=== PATIENT | female | born 1950 | race Caucasian/White ===

== ENCOUNTER 2021-12-14 12:28 | Inpatient (IN) ==
--- NOTE | 2021-12-14 12:35 | Emergency Department Note ---
ED Note Addendum Note Addendum: I performed a brief screening exam and placed orders to facilitate patient care, anticipating a more comprehensive exam by another provider or me later in the patient's emergency department stay. Patient is complaining of shortness of breath. On my initial exam, she is able to speak in full sentences without any increased work of breathing.
[2021-12-14 12:56] LABS: POC Blood Urea Nitrogen 37 mg/dL (6-20); POC CO2 22 mmol/L (22-30); POC Chloride 106 mEq/L (96-108); POC Creatinine 1.3 mg/dL (0.6-1.2); POC Glucose, Random 238 mg/dL (70-105); POC Hematocrit 40 % (36-48); POC Potassium 4.2 mEql/L (3.3-5.1); POC Sodium 139 mEq/L (133-145)
--- NOTE | 2021-12-14 13:02 | Emergency Department Note ---
SOB HPI General Chief Complaint: Shortness of Breath/Dyspnea Stated Complaint: short of breath Time Seen by Provider: 12/14/21 12:34 Source: patient Mode of arrival: ambulatory Limitations: no limitations History of Present Illness HPI Narrative: Patient is a 70-year-old lady who arrives emergency department private vehicle accompanied by her complaining of shortness of breath. The patient says she has been feeling short of breath off and on for the last week. This was gradual in onset and has been progressively worsening. She notes that her shortness of breath gets worse whenever she exerts herself. Last night, she was having difficulty sleeping because she would get more short of breath whenever she would lie flat. Because of that she decided to come to the emergency department for further evaluation today. She denies any associated chest pain or fever. She has had an associated cough. She has never felt like this before. She denies any recent weight gain or peripheral edema. Related Data Home Medications Medication Instructions Recorded Confirmed insulin lispro 100 unit/mL See Rx Instructions .ROUTE .COMPLEX 08/31/19 04/06/20 subcutaneous pen (Humalog KwikPen (U-100) Insulin) potassium chloride 20 mEq 20 meq PO QDAY 08/31/19 04/06/20 tablet,extended release aspirin 81 mg tablet,delayed 81 mg PO QDAY 10/12/19 04/06/20 release (Adult Low Dose Aspirin) cholecalciferol (vitamin D3) 100 4,000 unit PO QDAY 10/12/19 04/06/20 mcg (4,000 unit) capsule multivitamin,[id number] 1 tab PO QDAY 10/12/19 04/06/20 (Complete Multivitamin) omega-3 fatty acids 1,000 mg 1,000 mg PO QDAY 10/12/19 04/06/20 capsule (Fish Oil Concentrate) zinc 50 mg tablet (Chelated Zinc) 50 mg PO QDAY 10/12/19 04/06/20 Previous Rx's Medication Instructions Recorded blood sugar diagnostic (True #200 each 10/12/19 Metrix Pro Test Strip) lancets #200 each 10/12/19 losartan 25 mg tablet 25 mg PO QDAY #90 tab 04/06/20 Allergies Allergy/AdvReac Type Severity Reaction Status Date / Time atorvastatin AdvReac Unknown cough Verified 04/06/20 08:46 Review of Systems ROS ROS Narrative: Narrative: All systems ED: reviewed and negative except as stated. Constitutional: Denies fever Gastrointestinal: Reports nausea; Denies abdominal pain, vomiting or diarrhea PFS Narrative Patient History Narrative: Narrative: Medical/Surgical/Family History All Active Problems (Updated 12/14/21 @ 14:50 by Miles Tam DO) Congestive heart failure (Acute) High cholesterol (Chronic) Heart trouble (Chronic) Type 2 diabetes mellitus (Chronic) Breast cancer (Chronic) Urinary tract infection (Acute) Allergic reaction (Acute) Urticaria (Acute) CHF (congestive heart failure) (Acute) NSTEMI (non-ST elevated myocardial infarction) (Acute) Hypoxia (Acute) Medical History (Updated 12/14/21 @ 14:50 by Miles Tam DO) Breast cancer Heart trouble High cholesterol Type 2 diabetes mellitus Urinary tract infection Surgical History History of appendectomy History of quadruple bypass (07/09/19) Family History Brother Diabetes Heart disease Mother Heart disease Social History Smoking Status: Never smoker Alcohol Intake Frequency: does not drink Substance Use: does not use Exam Narrative Narrative: I reviewed the vital signs. Gen -patient is awake and alert and in no acute distress. The patient is well groomed. HEENT -head is atraumatic. There is no conjunctival pallor or scleral icterus. Mucous membranes are moist. CV -S1-S2 regular rate and rhythm. Peripheral pulses are palpable. There is no JVD. There is minimal pitting edema bilateral lower extremities. Resp -breathing is nonlabored. Lungs are clear to auscultation bilaterally. There is no cyanosis. GI - Abdomen is soft and nontender to palpation. There is no guarding or rebound tenderness. Derm -skin is warm and dry. There is no visible rash. MSK -present extremities are atraumatic. Psych -patient has appropriate affect. The patient does not appear internally stimulated. Neuro -patient answers questions appropriately with fluent speech. Patient moves all present extremities equally. General Limitations: no limitations Course Vital Signs Vital signs: Vital Signs Temperature 97.7 F 12/14/21 12:30 Pulse Rate 89 12/14/21 12:30 Respiratory Rate 18 12/14/21 12:30 Blood Pressure 193/102 12/14/21 12:30 Pulse Oximetry (%) 98 12/14/21 12:30 Temperature 97.7 F 12/14/21 12:30 Pulse Rate 84 12/14/21 14:46 Respiratory Rate 24 H 12/14/21 14:46 Blood Pressure 151/75 12/14/21 14:46 Pulse Oximetry (%) 93 12/14/21 14:46 MDM MDM Narrative Medical decision making narrative: I personally performed interpreted limited bedside transthoracic echocardiogram. I obtained parasternal long and short axis views. There is no pericardial effusion. There is decreased left ventricular ejection fraction. There is no evidence of right ventricular strain. Patient presents with dyspnea on exertion and orthopnea. Given the lack of chest pain and the present diagnostic findings I do not think this is due to pulmonary embolus. Chest x-ray reveals pulmonary edema with bilateral effusions. BNP is elevated and troponin is normal. I discussed my clinical impression with the patient and her and she is agreeable with the plan for admission. I discussed the patient's history examination and diagnostic findings with Dr. Becerra, who agrees with the plan of care and accepts admission. Critical care time I provided 32 minutes of critical care time. This was in addition to any separately billable procedures. The patient was given IV diuretics and IV nitrates to treat her decompensated congestive heart failure and accelerated hypertension. The patient was closely monitored for response to treatment and stability of vital signs throughout their emergency department stay. Lab Data Lab results reviewed: Yes I reviewed the patient's lab results. Result diagrams: 12/14/21 12:50 Labs: Lab Results 12/14/21 12/14/21 12/14/21 Range/Units 12:49 12:49 12:50 WBC 6.8 (4.5-11.0) K/mcL RBC 4.77 (3.59-5.38) M/mcL Hgb 13.6 (11.2-15.7) g/dL Hct 38.9 (34.1-44.9) % POC Hct 40 (36-48) % MCV 81.6 (80.0-100.0) fL MCH 28.5 (26.0-34.0) pg MCHC 35.0 (31.0-36.0) g/dL RDW 13.0 (11.5-14.5) % Plt Count 153 (140-440) K/mcL MPV 10.6 H (7.4-10.4) fL Neut % (Auto) 64.5 (38.0-78.0) % Lymph % (Auto) 24.6 (15.5-49.0) % [place] % (Auto) 8.7 (1.0-12.0) % Eos % (Auto) 1.9 (0.0-7.0) % Baso % (Auto) 0.3 (0.0-2.0) % Lymph # (Auto) 1.67 (1.50-4.80) K/mcL [place] # (Auto) 0.59 (0.10-0.90) K/mcL Eos # (Auto) 0.13 (0.00-0.70) K/mcL Baso # (Auto) 0.02 (0.00-0.30) K/mcL Absolute Neutrophils 4.38 (1.80-8.00) K/mcL POC Sodium 139 (133-145) mEq/L POC Potassium 4.2 (3.3-5.1) mEql/L POC Chloride 106 (96-108) mEq/L POC Total CO2 22 (22-30) mmol/L POC BUN 37 H (6-20) mg/dL POC Creatinine 1.3 H (0.6-1.2) mg/dL POC Glucose 238 H (70-105) mg/dL POC WB Ioniz Calcium 1.30 (1.16-1.32) mmEq/L Troponin T < 0.01 (<0.03) ng/mL NT-Pro-B Natriuret Pep 10352.0 H (<125.0) pg/mL ED POC Tests ED POC Tests: DAYANARA - SARS Antigen Negative EKG Data EKG #1: EKG attestation: Yes I reviewed and interpreted this EKG. EKG results narrative: EKG performed at 12:54 PM: Sinus rhythm, rate 92. Normal P wave morphology. Left axis deviation. There is subtle ST depression in V5 and V6. T waves are inverted in V5 and V6 and otherwise flattened. Normal MN QRS and QTc duration. Compared the prior EKG from July 07, 2019, there are new T wave inversions in V5 and V6 of uncertain significance. EKG was interpreted by me. 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/PA only: No Clinical Impression: Congestive heart failure Patient Disposition: Xfer As Inpt ([facility]) Condition: Fair Follow up with: Joey Viramontes DO [Primary Care Provider] - Prescriptions: No Action omega-3 fatty acids [Fish Oil Concentrate] 1,000 mg capsule 1,000 mg PO QDAY 0RF aspirin [Adult Low Dose Aspirin] 81 mg tablet,delayed release (DR/EC) 81 mg PO QDAY 0RF cholecalciferol (vitamin D3) 4,000 unit capsule 4,000 unit PO QDAY 0RF zinc [Chelated Zinc] 50 mg tablet 50 mg PO QDAY 0RF Complete Multivitamin Tablet 1 tab PO QDAY 0RF sitagliptin [Januvia] 100 mg tablet 0RF (DME) True Metrix Pro Test Strip Strip See Rx Instructions .ROUTE .MEDSUPPLY Qty: 200 5RF Rx Instructions: Use to check blood glucose 4 times daily (DME) lancets Misc See Rx Instructions .ROUTE .MEDSUPPLY Qty: 200 3RF Rx Instructions: Use to test blood sugars 4 times daily insulin lispro [Humalog KwikPen Insulin] 100 unit/mL insulin pen See Rx Instructions .ROUTE .COMPLEX 0RF Rx Instructions: sliding scale three times daily ; potassium chloride 20 mEq tablet extended release 20 meq PO QDAY 0RF semaglutide [Ozempic] 0.25 mg or 0.5 mg(2 mg/1.5 mL) pen injector 0RF losartan 25 mg tablet 25 mg PO QDAY Qty: 90 3RF
--- NOTE | 2021-12-14 13:37 | XRay Report ---
CLINICAL INFORMATION: Dyspnea COMPARISON: 07/21/2019 TECHNIQUE: PA and Lateral views FINDINGS: The heart is mildly enlarged, but unchanged. Sternotomy changes noted. Mediastinum is normal. Pulmonary vessels are mildly distended with moderate interstitial edema throughout both lungs. Moderate left pleural effusion results in compressive atelectasis of left lower lobe and lingula. Small right pleural effusion also appreciated. IMPRESSION: Mild CHF Moderate left pleural effusion resulting in compressive atelectasis of the lingula and left lower lobe. This has worsened from previous x-ray Small right pleural effusion Interpreted and Authenticated by: Joey Tomlinson 12/14/21
[2021-12-14 13:43] LABS: Basophils # (Auto) 0.02 K/mcL (0.00-0.30); Basophils % (Auto) 0.3 % (0.0-2.0); Eosinophils # (Auto) 0.13 K/mcL (0.00-0.70); Eosinophils % (Auto) 1.9 % (0.0-7.0); Hematocrit 38.9 % (34.1-44.9); Hemoglobin 13.6 g/dL (11.2-15.7); Lymphocytes # (Auto) 1.67 K/mcL (1.50-4.80); Lymphocytes % (Auto) 24.6 % (15.5-49.0); Mean Cell Volume 81.6 fL (80.0-100.0); Mean Platelet Volume 10.6 fL (7.4-10.4); Monocytes # (Auto) 0.59 K/mcL (0.10-0.90); Monocytes % (Auto) 8.7 % (1.0-12.0); Neutrophils % (Auto) 64.5 % (38.0-78.0); Platelet Count 153 K/mcL (140-440); RBC 4.77 M/mcL (3.59-5.38); WBC 6.8 K/mcL (4.5-11.0)
[2021-12-14] MEDS ORDERED: FUROSEMIDE 40 MG/4 ML VIAL IV ONE (13:53)
[2021-12-14] MEDS ORDERED: NITROGLYCERIN/D5W 25 MG/250 ML BOTTLE IV SCH (14:00)
[2021-12-14] MEDS: 0.9 % SODIUM CHLORIDE 250 ML IV SCH (14:58)
--- NOTE | 2021-12-14 15:48 | Internal Med History&Physical ---
HPI History of Present Illness Patient information: Note initiated : 12/14/21 at 3:35 pm Service Date, if different from initiated Date: [] Patient: Megan Jain a 70 y/o F admitted on for short of breath. Chief Complaint: [shortness of breath, dyspnea on exertion] Chief complaint: shortness of breath, dyspnea on exertion History of present illness: Ms. Jain is a 70 year old F past medical history of CAD status post CABG x4, breast cancer status post right lumpectomy decades ago type 2 diabetes mellitus, presenting with 4-day history of shortness of breath and dyspnea on exertions. Patient does not have a history of congestive heart failure. Over the past 4 days, she is experiencing acute onset, gradually worsening shortness of breath with dyspnea on exertions with minimal physical activity such as walking 10 to 20 feet. In addition, she is also committing of orthopnea to the point that she have to sleep on the chair. She is experiencing unintentional weight loss, unquantifiable, due to decreased appetite. She denies any leg swellings. She is committing of productive cough with clear sputum as well as wheezing over the same period of time. She denies any chest pain or palpitations. She denies any f ever or chills. Her symptoms got particularly worse since yesterday so she decided to come to the ED for evaluation this morning. Vital signs at ED presentation significant for elevated blood pressure 196/104 as well as tachypnea with rate of breathing in the upper 20s, with rest of the vital signs within normal limits. Covid screening test negative. Labs significant for normal serum troponin less than 0.01, as well as elevated serum BNP 11,564. Serum creatinine mildly elevated to 1.3. Checks x-ray showing mild CHF with moderate left pleural effusions resulting in compressive atelectasis of the lingula and left lower lobe which has worsened from previous x-ray study. Nitroglycerin drip was started in the ED for better blood pressure control and admission request was made for management of her blood pressure as well as for CHF exacerbations. Constitutional Constitutional: Absent chills, excessive sweating, fatigue, fever(s) or weakness EENT Eyes: Absent blurry vision, change in vision, loss of vision or other visual disturbances Ears: Absent decreased hearing or tinnitus Nose, mouth and throat: Absent abnormal hearing, dry mouth, headache(s), nasal congestion or sore throat Cardiovascular Cardiovascular: Present dyspnea and orthopnea; Absent chest pain, chest pain at rest, edema, irregular heart rhythm or palpatations Respiratory Respiratory: Present cough, dyspnea on exertion, wheezing and excessive phlegm production; Absent dyspnea Gastrointestinal Gastrointestinal: Absent abdominal pain, constipation, diarrhea, nausea or vomiting Musculoskeletal Musculoskeletal: Absent back pain, deformity, limited range of motion, muscle cramps, muscle weakness or numbness Integumentary Integumentary: Absent lesions, rash or wounds Neurological Neurological: Absent focal weakness, headache(s) or numbness Psychiatric Psychiatric: Absent anxiety, depression or hallucinations PFSH PFSH All Active Problems (Updated 12/14/21 @ 15:44 by Yazan Becerra MD) CAD (coronary artery disease) (Acute) Stage 1 acute kidney injury (Acute) Hypertensive emergency (Acute) CHF exacerbation (Acute) Congestive heart failure (Acute) High cholesterol (Chronic) Heart trouble (Chronic) Type 2 diabetes mellitus (Chronic) Breast cancer (Chronic) Urinary tract infection (Acute) Allergic reaction (Acute) Urticaria (Acute) CHF (congestive heart failure) (Acute) NSTEMI (non-ST elevated myocardial infarction) (Acute) Hypoxia (Acute) Medical History (Updated 12/14/21 @ 15:44 by Yazan Becerra MD) Breast cancer Heart trouble High cholesterol Type 2 diabetes mellitus Urinary tract infection Surgical History History of appendectomy History of quadruple bypass (07/09/19) Family History Brother Diabetes Heart disease Mother Heart disease Social History (Updated 04/06/20 @ 10:38 by Joey Viramontes DO) marital status: occupational status: retired alcohol intake frequency: does not drink substance use type: does not use MEDS/ALLERGIES Home Medications and Allergies Home Medications Medication Instructions Recorded Confirmed Type insulin lispro 100 unit/mL See Rx Instructions .ROUTE .COMPLEX 08/31/19 04/06/20 History subcutaneous pen (Humalog KwikPen (U-100) Insulin) potassium chloride 20 mEq 20 meq PO QDAY 08/31/19 04/06/20 History tablet,extended release aspirin 81 mg tablet,delayed 81 mg PO QDAY 10/12/19 04/06/20 History release (Adult Low Dose Aspirin) blood sugar diagnostic (True #200 each 10/12/19 04/06/20 Rx Metrix Pro Test Strip) cholecalciferol (vitamin D3) 100 4,000 unit PO QDAY 10/12/19 04/06/20 History mcg (4,000 unit) capsule lancets #200 each 10/12/19 04/06/20 Rx multivitamin,sj-ejzm-[id number] 1 tab PO QDAY 10/12/19 04/06/20 History (Complete Multivitamin) omega-3 fatty acids 1,000 mg 1,000 mg PO QDAY 10/12/19 04/06/20 History capsule (Fish Oil Concentrate) zinc 50 mg tablet (Chelated Zinc) 50 mg PO QDAY 10/12/19 04/06/20 History losartan 25 mg tablet 25 mg PO QDAY #90 tab 04/06/20 04/06/20 Rx Allergies Allergy/AdvReac Type Severity Reaction Status Date / Time atorvastatin AdvReac Unknown cough Verified 04/06/20 08:46 EXAM Constitutional Vitals: Temp Pulse Resp BP Pulse Ox 36.5 C 81 18 139/77 94 12/14/21 12:30 12/14/21 15:11 12/14/21 15:11 12/14/21 15:11 12/14/21 15:11 General appearance: cooperative and no acute distress Head Head exam: Present atraumatic and normocephalic Eye Eye exam: Present EOMI and PERRL ENT ENT exam: Present mucous membranes moist, normal exam and normal external ear exam Neck Neck exam: Present normal inspection; Absent lymphadenopathy, tenderness or thyromegaly Respiratory Respiratory exam: Present decreased breath sounds and rhonchi; Absent accessory muscle use, respiratory distress or wheezes Cardiovascular Cardiovascular exam: Present normal rate and rhythm; Absent JVD GI/Abdominal GI/Abdominal exam: Present normal bowel sounds and soft; Absent organomegaly or tenderness Extremities Exam Extremities exam: Present full ROM, normal capillary refill and normal inspection; Absent tenderness Neurological Exam Neurological exam: Present alert, CN II-XII intact and oriented X3; Absent motor sensory deficit Psychiatric Psychiatric exam: Present normal affect and normal mood; Absent anxious or depressed Skin Skin exam: Present dry and intact DATA Data Completed and Pending Labs: Labs from last 24 hours 12/14/21 12/14/21 12/14/21 12:50 12:49 12:49 WBC 6.8 RBC 4.77 Hgb 13.6 Hct 38.9 POC Hct 40 MCV 81.6 MCH 28.5 MCHC 35.0 RDW 13.0 Plt Count 153 MPV 10.6 H Neut % (Auto) 64.5 Lymph % (Auto) 24.6 [place] % (Auto) 8.7 Eos % (Auto) 1.9 Baso % (Auto) 0.3 Lymph # (Auto) 1.67 [place] # (Auto) 0.59 Eos # (Auto) 0.13 Baso # (Auto) 0.02 Absolute Neutrophils 4.38 POC Sodium 139 POC Potassium 4.2 POC Chloride 106 POC Total CO2 22 POC BUN 37 H POC Creatinine 1.3 H POC Glucose 238 H POC WB Ioniz Calcium 1.30 Troponin T < 0.01 NT-Pro-B Natriuret Pep 66157.0 H A/P Assessment and plan (1) Type 2 diabetes mellitus: Status: Chronic Qualifiers: Diabetes mellitus jail insulin use: with 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 CHF exacerbation: Inpatient ICU telemetry Strict intake and output Daily weigh 2L/day fluid restriction Supplemental oxygen therapy as needed to keep spo2>=92% 2D echocardiogram No beta riley in acute exacerbation phase Losartan Lasix 40mg IV BID Physical therapy Occupational therapy 2. Hypertensive emergency: Inpatient ICU telemetry Nitroglycerin drip Losartan Lasix 40mg IV BID 3. h/o CAD: Aspirin [place] 3 oil 4. T2DM: HgA1c Hold oral hypoglycemics Correctional scale insulin AC HS Accu Chek AC HS Hypoglycemia protocol Diabetic diet 5. Stage 1 acute kidney injury: Avoid nephrotoxic agents Saline lock CMP in the morning to trend kidney functions GI ppx: not currently indicated DVT ppx: Heparin Code status: Full Prognosis: guarded Disposition: inpatient ICU Critical Care Time: 1hr Time Spent With Patient Time: Total time spent is greater than 50% in coordination of care (as documented) at patient's floor/unit and/or counseling patient: Total time spent with greater than 50% in coordination of care (as documented) at patient's floor/unit and/or counseling patient:: Greater than 35 minutes
[2021-12-14] MEDS ORDERED: DEXTROSE 50% 50 ML VIAL IV PRN (16:31)
[2021-12-14] MEDS ORDERED: SENNOSIDES 8.8 MG/5 ML ML PT PRN (16:31)
[2021-12-14] MEDS ORDERED: DEXTROSE 31 GM ORAL.SUSP PO PRN (16:31)
[2021-12-14] MEDS ORDERED: ONDANSETRON 4 MG/2 ML VIAL IV PRN (16:31)
[2021-12-14] MEDS ORDERED: IPRATROPIUM/ALBUTEROL 3 ML AMPUL.NEB NEB PRN (16:31)
[2021-12-14] MEDS: FUROSEMIDE 40 MG/4 ML VIAL IV SCH (17:05)
[2021-12-14] MEDS: INSULIN LISPRO 1 UNIT/0.01 ML UNIT SQ SCH ×2 (17:17→21:04)
[2021-12-14 18:06] LABS: Hemoglobin A1C 7.8 % Hgb (4.0-6.0)
[2021-12-14] MEDS: NITROGLYCERIN/D5W 25 MG/250 ML BOTTLE IV SCH (20:13)
[2021-12-14] MEDS: HEPARIN 5,000 UNIT/ML VIAL SQ SCH (20:14)
[2021-12-14] MEDS: DOCUSATE SODIUM 100 MG CAPSULE PO SCH (20:15)
[2021-12-14] MEDS: 0.9 % SODIUM CHLORIDE 10 ML SYRINGE IV SCH (20:15)
[2021-12-14] MEDS: ACETAMINOPHEN 325 MG TABLET PO PRN (20:48)
[2021-12-15] MEDS: NITROGLYCERIN/D5W 25 MG/250 ML BOTTLE IV SCH ×3 (01:16→13:45)
[2021-12-15] MEDS: 0.9 % SODIUM CHLORIDE 250 ML IV SCH (03:31)
[2021-12-15] MEDS: 0.9 % SODIUM CHLORIDE 10 ML SYRINGE IV SCH ×3 (04:39→20:28)
[2021-12-15] MEDS: ACETAMINOPHEN 325 MG TABLET PO PRN ×2 (05:25→20:27)
[2021-12-15 06:47] LABS: Basophils # (Auto) 0.03 K/mcL (0.00-0.30); Basophils % (Auto) 0.4 % (0.0-2.0); Eosinophils # (Auto) 0.11 K/mcL (0.00-0.70); Eosinophils % (Auto) 1.5 % (0.0-7.0); Hematocrit 32.2 % (34.1-44.9); Hemoglobin 11.3 g/dL (11.2-15.7); Lymphocytes # (Auto) 1.46 K/mcL (1.50-4.80); Lymphocytes % (Auto) 19.9 % (15.5-49.0); Mean Cell Volume 81.1 fL (80.0-100.0); Mean Corpuscular HGB Conc 35.1 g/dL (31.0-36.0); Mean Platelet Volume 10.8 fL (7.4-10.4); Monocytes # (Auto) 0.63 K/mcL (0.10-0.90); Monocytes % (Auto) 8.6 % (1.0-12.0); Neutrophils % (Auto) 69.6 % (38.0-78.0); Platelet Count 145 K/mcL (140-440); RBC 3.97 M/mcL (3.59-5.38); Red Cell Distribution Width 12.8 % (11.5-14.5); WBC 7.3 K/mcL (4.5-11.0)
[2021-12-15 07:14] LABS: ALT/SGPT 14 U/L (<40); AST/SGOT 17 U/L (<32); Albumin 3.5 gm/dL (3.2-5.2); Albumin/Globulin Ratio 1.5 (1.0-2.3); Alkaline Phosphatase 58 U/L (39-117); Bilirubin,Total 0.6 mg/dL (0.1-1.0); Blood Urea Nitrogen 34 mg/dL (8-23); Calcium 9.1 mg/dL (8.6-10.4); Carbon Dioxide 21 mmol/L (22-30); Chloride 101 mmol/L (96-108); Globulin 2.4 gm/dL (2.2-3.7); Glomerular Filtration Rate 42; Glucose 190 mg/dL (70-105); Phosphorous 3.3 mg/dL (2.5-4.5)
--- NOTE | 2021-12-15 07:47 | EKG ---
[facility] Test Date: 2021-12-14 Pat Name: Megan Jain Department: ED Room: Gender: Female Inventory Checker: SUJEY : 1950 Requested By: Miles Tam Order Number: [id number] Reading MD: Elvis Miner Measurements Intervals [place] Rate: 92 P: 71 MI: 125 QRS: 72 QRSD: 88 T: 156 QT: 389 QTc: 482 Interpretive Statements Sinus rhythm Probable left atrial enlargement Probable LVH with secondary repol abnrm Electronically Signed On 12-15-2021 7:47:27 PST by Elvis Miner /store/[email or web address]/[id number]
[2021-12-15] MEDS: FUROSEMIDE 40 MG/4 ML VIAL IV SCH ×2 (07:59→15:37)
[2021-12-15] MEDS: ASPIRIN 81 MG TAB.CHEW PO SCH (08:00)
[2021-12-15] MEDS: LOSARTAN 25 MG TABLET PO SCH (08:00)
[2021-12-15] MEDS: POTASSIUM CHLORIDE 20 MEQ TABLET PO SCH (08:00)
[2021-12-15] MEDS: ZINC SULFATE 50 MG CAPSULE PO SCH (08:00)
[2021-12-15] MEDS: MULTIVIT,THER IRON,CA,FA & MIN 1 TABLET PO SCH (08:00)
[2021-12-15] MEDS: HEPARIN 5,000 UNIT/ML VIAL SQ SCH ×2 (08:00→20:27)
[2021-12-15] MEDS: VITAMIN D3 25 MCG TABLET PO SCH (08:00)
[2021-12-15] MEDS: INSULIN LISPRO 1 UNIT/0.01 ML UNIT SQ SCH ×4 (08:00→20:27)
[2021-12-15] MEDS: FISH OIL 1,000 MG CAPSULE PO SCH (08:21)
[2021-12-15] MEDS: DOCUSATE SODIUM 100 MG CAPSULE PO SCH ×2 (08:21→20:28)
--- NOTE | 2021-12-15 08:46 | Internal Med Progress Note ---
SUBJECTIVE Subjective Patient information: Note initiated : 12/15/21 at 8:42 am Service Date, if different from initiated Date: [] Patient: Megan Jain a 70 y/o F admitted on 12/14/21 for short of breath. Chief Complaint: [] Interval history: Ms. Jain is a 70 year old F past medical history of CAD status post CABG x4, breast cancer status post right lumpectomy decades ago type 2 diabetes mellitus, presenting with 4-day history of shortness of breath and dyspnea on exertions. Patient does not have a history of congestive heart failure. Over the past 4 days, she is experiencing acute onset, gradually worsening shortness of breath with dyspnea on exertions with minimal physical activity such as walking 10 to 20 feet. In addition, she is also committing of orthopnea to the point that she have to sleep on the chair. She is experiencing unintentional weight loss, unquantifiable, due to decreased appetite. She denies any leg swellings. She is committing of productive cough with clear sputum as well as wheezing over the same period of time. She denies any chest pain or palpitations. She denies any fever or chills. Her symptoms got particularly worse since yesterday so she decided to come to the ED for evaluation this morning. Vital signs at ED presentation significant for elevated blood pressure 196/104 as well as tachypnea with rate of breathing in the upper 20s, with rest of the vital signs within normal limits. Covid screening test negative. Labs significant for normal serum troponin less than 0.01, as well as elevated serum BNP 11,564. Serum creatinine mildly elevated to 1.3. Checks x-ray showing mild CHF with moderate left pleural effusions resulting in compressive atelectasis of the lingula and left lower lobe which has worsened from previous x-ray study. Nitroglycerin drip was started in the ED for better blood pressure control and admission request was made for management of her blood pressure as well as for CHF exacerbations. 12/15: Currently on 1L/min oxygen. Good urine output. Still on Nitroglycerin drip. Pending 2D echocardiogram results. Improving SOB. c/o productive cough with clear sputum. c/o left lateral chest wall pain. Denies palpitation. Denies wheezing. Denies headache. Was able to sleep last night. Continue IV Lasix and Losartan. Try to wean off Nitroglycerin drip as tolerated. Constitutional Vitals: Vital Signs Temp Pulse Resp BP Pulse Ox 36.1 C 79 27 H 131/67 94 12/15/21 08:01 12/15/21 07:46 12/15/21 08:01 12/15/21 08:01 12/15/21 08:01 Period Temp Pulse Resp BP Sys/Avila Pulse Ox Last 24 Hr 36.1 C-37.2 C 73-95 13-31 117-196/56-104 90-99 Intake and Output 12/14/21 12/15/21 12/15/21 21:59 05:59 13:59 Intake Total 850 492 159 Output Total 1475 325 250 Balance -625 167 -91 Weight 67.132 kg Intake & Output: Intake & Output 12/14/21 12/15/21 12/15/21 21:59 05:59 13:59 Intake Total 850 492 159 Output Total 1475 325 250 Balance -625 167 -91 Weight 67.132 kg Intake: IV 250 492 159 NITROGLYCERIN/D5W 25 mg In 250 250 492 159 ml @ 60 MCG/MIN 36 mls/hr IV . Q6H57M [facility] Rx#:[id number] Oral 600 Output: Void Amount 1475 325 250 Other: Meal Breakfast Percent of Meal Consumed 75% Feeding Ability Independent Urine Appearance Clear Clear Cloudy Urine Color Pale Pale Bright Yellow Urine Odor Normal Normal Stool Size Small Stool Color Brown Stool Consistency Formed # Voids 1 # Bowel Movements 1 Head Head exam: Present atraumatic and normal inspection Eye Eye exam: Present normal appearance ENT ENT exam: Present mucous membranes moist, normal exam and normal external ear exam Additional comments: Nasal cannula in place Neck Neck exam: Present normal inspection Respiratory Respiratory exam: Present normal respiratory exam Cardiovascular Cardiovascular exam: Present normal rate and rhythm GI/Abdominal GI/Abdominal exam: Present normal bowel sounds Extremities Exam Extremities exam: Present pedal edema Back Exam Back exam: Present normal inspection Neurological Exam Neurological exam: Present alert and oriented X3 Skin Skin exam: Present intact and warm OBJ DATA Labs CBC & Chem 7: 12/15/21 05:23 12/15/21 05:23 Labs: Abnormal Lab Results 12/15/21 12/15/21 12/14/21 05:23 05:23 12:50 Hct 32.2 L MPV 10.8 H 10.6 H Lymph # (Auto) 1.46 L Carbon Dioxide 21 L POC BUN BUN 34 H Creatinine 1.3 H POC Creatinine Glucose 190 H POC Glucose Hemoglobin A1c NT-Pro-B Natriuret Pep 12/14/21 12/14/21 12:49 12:49 Hct MPV Lymph # (Auto) Carbon Dioxide POC BUN 37 H BUN Creatinine POC Creatinine 1.3 H Glucose POC Glucose 238 H Hemoglobin A1c 7.8 H NT-Pro-B Natriuret Pep 32900.0 H Meds: Medications Acetaminophen (Acetaminophen 325 Mg Tablet) 650 mg PO Q4-6HP PRN; Protocol PRN Reason: Per Pain Protocol/Fever > 101 Last Admin: 12/15/21 05:25 Dose: 650 mg Documented by: Albuterol/Ipratropium (Ipratropium/Albuterol 3 Ml Ampul.Neb) 3 ml NEB Q4HRT PRN PRN Reason: Wheezing Aspirin (Aspirin 81 Mg Tab.Chew) 81 mg PO DAILY [facility] Last Admin: 12/15/21 08:00 Dose: 81 mg Documented by: Dextrose (Dextrose 50% 50 Ml Vial) 0 ml IV UD PRN PRN Reason: Hypoglycemia Diagnostic Test (Pha) (Accu-Chek 1 Each Strip) 1 each FS ACHS [facility] Last Admin: 12/15/21 07:45 Dose: 1 each Documented by: Docusate Sodium (Docusate Sodium 100 Mg Capsule) 100 mg PO BID [facility] Last Admin: 12/15/21 08:21 Dose: Not Given Documented by: Fish Oil (Fish Oil 1,000 Mg Capsule) 1,000 mg PO DAILY [facility] Last Admin: 12/15/21 08:21 Dose: Not Given Documented by: Furosemide (Furosemide 40 Mg/4 Ml Vial) 40 mg IV BIDD [facility] Last Admin: 12/15/21 07:59 Dose: 40 mg Documented by: Glucose (Dextrose 31 Gm Oral.Susp) 15 gm PO PRN PRN PRN Reason: Hypoglycemia Heparin Sodium (Porcine) (Heparin 5,000 Unit/Ml Vial) 5,000 unit SQ Q12 [facility] Last Admin: 12/15/21 08:00 Dose: 5,000 unit Documented by: Sodium Chloride (Sodium Chloride 0.9%) 250 mls @ 20 mls/hr IV .[id number] [facility] Last Admin: 12/15/21 03:31 Dose: Not Given Documented by: Nitroglycerin/Dextrose (Nitroglycerin/D5w) 25 mg in 250 mls @ 36 mls/hr IV .Q6H57M [facility]; Protocol Last Titration: 12/15/21 08:37 Dose: 80 mcg/min, 48 mls/hr Documented by: Insulin Human Lispro (Insulin Lispro 1 Unit/0.01 Ml Unit) 0 unit SQ ACHS [facility]; P rotocol Last Admin: 12/15/21 08:00 Dose: 6 units Documented by: Iron Carb/Multivit/[employer]ening Plant Supervisor/Folic Acid (Multivit,Ther Iron,Ca,Fa & Min 1 Tablet) 1 tab PO DAILY [facility] Last Admin: 12/15/21 08:00 Dose: 1 tab Documented by: Losartan Potassium (Losartan 25 Mg Tablet) 25 mg PO QDAY [facility] Last Admin: 12/15/21 08:00 Dose: 25 mg Documented by: Ondansetron HCl (Ondansetron 4 Mg/2 Ml Vial) 4 mg IV Q4-6HP PRN; Protocol PRN Reason: Nausea And Vomiting Last Admin: 12/15/21 05:25 Dose: 4 mg Documented by: Potassium Chloride (Potassium Chloride 20 Meq Tablet) 20 meq PO QAC [facility] Last Admin: 12/15/21 08:00 Dose: 20 meq Documented by: Senna (Sennosides 8.8 Mg/5 Ml Ml) 8.8 mg PT DAILY PRN PRN Reason: Constipation Sodium Chloride (0.9 % Sodium Chloride 10 Ml Syringe) 10 ml IV Q8 [facility] Last Admin: 12/15/21 04:39 Dose: 10 ml Documented by: Vitamin D (Vitamin D3 25 Mcg Tablet) 100 mcg PO DAILY [facility] Last Admin: 12/15/21 08:00 Dose: 100 mcg Documented by: Zinc Sulfate (Zinc Sulfate 50 Mg Capsule) 50 mg PO DAILY [facility] Last Admin: 12/15/21 08:00 Dose: 50 mg Documented by: A/P Assessment and plan (1) Type 2 diabetes mellitus: Status: Chronic Qualifiers: 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 CHF exacerbation: Inpatient ICU telemetry Strict intake and output Daily weigh 2L/day fluid restriction Supplemental oxygen therapy as needed to keep spo2>=92%, currently on 1L/min oxygen 2D echocardiogram, results pending No beta riley in acute exacerbation phase Losartan Lasix 40mg IV BID Physical therapy Occupational therapy 2. Hypertensive emergency: Inpatient ICU telemetry Nitroglycerin drip, try to wean down/off today Losartan Lasix 40mg IV BID 3. h/o CAD: Aspirin [place] 3 oil 4. T2DM: HgA1c 7.8 Hold oral hypoglycemics Correctional scale insulin AC HS Accu Chek AC HS Hypoglycemia protocol Diabetic diet 5. Stage 1 acute kidney injury: Avoid nephrotoxic agents Saline lock CMP in the morning to trend kidney functions GI ppx: not currently indicated DVT ppx: Heparin Code status: Full Prognosis: guarded Disposition: inpatient ICU Critical Care Time: 1hr Time Spent With Patient Time: Total time spent is greater than 50% in coordination of care (as documented) at patient's floor/unit and/or counseling patient: Total time spent with greater than 50% in coordination of care (as documented) at patient's floor/unit and/or counseling patient:: Greater than 35 minutes QUALITY VTE Deep Vein Thrombosis/Pulmonary Embolism Present on Admission: No
[2021-12-15] MEDS ORDERED: IBUPROFEN 600 MG TABLET PO PRN (10:25)
[2021-12-15] MEDS ORDERED: hydrALAZINE 20 MG/ML VIAL IV PRN (21:08)
[2021-12-16] MEDS: 0.9 % SODIUM CHLORIDE 10 ML SYRINGE IV SCH ×3 (05:55→20:47)
[2021-12-16 06:56] LABS: Basophils # (Auto) 0.03 K/mcL (0.00-0.30); Basophils % (Auto) 0.5 % (0.0-2.0); Eosinophils # (Auto) 0.21 K/mcL (0.00-0.70); Eosinophils % (Auto) 3.7 % (0.0-7.0); Hemoglobin 12.2 g/dL (11.2-15.7); Lymphocytes % (Auto) 28.3 % (15.5-49.0); Mean Cell Volume 81.6 fL (80.0-100.0); Mean Corpuscular HGB Conc 34.9 g/dL (31.0-36.0); Mean Platelet Volume 11.1 fL (7.4-10.4); Monocytes # (Auto) 0.58 K/mcL (0.10-0.90); Monocytes % (Auto) 10.2 % (1.0-12.0); Neutrophils % (Auto) 57.3 % (38.0-78.0); Platelet Count 143 K/mcL (140-440); RBC 4.29 M/mcL (3.59-5.38); WBC 5.7 K/mcL (4.5-11.0)
[2021-12-16 07:17] LABS: ALT/SGPT 14 U/L (<40); AST/SGOT 15 U/L (<32); Albumin 3.8 gm/dL (3.2-5.2); Albumin/Globulin Ratio 1.4 (1.0-2.3); Alkaline Phosphatase 67 U/L (39-117); Bilirubin,Total 0.3 mg/dL (0.1-1.0); Blood Urea Nitrogen 43 mg/dL (8-23); Calcium 9.4 mg/dL (8.6-10.4); Carbon Dioxide 22 mmol/L (22-30); Chloride 101 mmol/L (96-108); Globulin 2.7 gm/dL (2.2-3.7); Glomerular Filtration Rate 25; Glucose 128 mg/dL (70-105); Phosphorous 4.9 mg/dL (2.5-4.5)
[2021-12-16] MEDS: FUROSEMIDE 40 MG TABLET PO SCH ×2 (08:42→16:39)
[2021-12-16] MEDS: POTASSIUM CHLORIDE 20 MEQ TABLET PO SCH (08:44)
[2021-12-16] MEDS: ZINC SULFATE 50 MG CAPSULE PO SCH (08:44)
[2021-12-16] MEDS: ASCORBIC ACID 500 MG TABLET PO SCH (08:44)
[2021-12-16] MEDS: DOCUSATE SODIUM 100 MG CAPSULE PO SCH ×2 (08:44→20:47)
[2021-12-16] MEDS: LOSARTAN 25 MG TABLET PO SCH (08:44)
[2021-12-16] MEDS: VITAMIN D3 25 MCG TABLET PO SCH (08:44)
[2021-12-16] MEDS: ASPIRIN 81 MG TAB.CHEW PO SCH (08:45)
--- NOTE | 2021-12-16 09:17 | Internal Med Progress Note ---
SUBJECTIVE Subjective Patient information: Note initiated : 12/16/21 at 9:15 am Service Date, if different from initiated Date: [] Patient: Megan Jain a 70 y/o F admitted on 12/14/21 for short of breath. Chief Complaint: [] Interval history: Ms. Jain is a 70 year old F past medical history of CAD status post CABG x4, breast cancer status post right lumpectomy decades ago type 2 diabetes mellitus, presenting with 4-day history of shortness of breath and dyspnea on exertions. Patient does not have a history of congestive heart failure. Over the past 4 days, she is experiencing acute onset, gradually worsening shortness of breath with dyspnea on exertions with minimal physical activity such as walking 10 to 20 feet. In addition, she is also committing of orthopnea to the point that she have to sleep on the chair. She is experiencing unintentional weight loss, unquantifiable, due to decreased appetite. She denies any leg swellings. She is committing of productive cough with clear sputum as well as wheezing over the same period of time. She denies any chest pain or palpitations. She denies any fever or chills. Her symptoms got particularly worse since yesterday so she decided to come to the ED for evaluation this morning. Vital signs at ED presentation significant for elevated blood pressure 196/104 as well as tachypnea with rate of breathing in the upper 20s, with rest of the vital signs within normal limits. Covid screening test negative. Labs significant for normal serum troponin less than 0.01, as well as elevated serum BNP 11,564. Serum creatinine mildly elevated to 1.3. Checks x-ray showing mild CHF with moderate left pleural effusions resulting in compressive atelectasis of the lingula and left lower lobe which has worsened from previous x-ray study. Nitroglycerin drip was started in the ED for better blood pressure control and admission request was made for management of her blood pressure as well as for CHF exacerbations. 12/15: Currently on 1L/min oxygen. Good urine output. Still on Nitroglycerin drip. Pending 2D echocardiogram results. Improving SOB. c/o productive cough with clear sputum. c/o left lateral chest wall pain. Denies palpitation. Denies wheezing. Denies headache. Was able to sleep last night. Continue IV Lasix and Losartan. Try to wean off Nitroglycerin drip as tolerated. 12/16: Currently on room air. Been off Nitroglycerin drip. 2D echocardiogram showing reduced left ventricular systolic function with LVEF 30-35%. Improving degree of SOB. Denies cough or sputum production or wheezing. Denies chest pain. Denies leg swelling. Denies anxiety. Continue NENA-i/ARB, Aldactone, and oral Lasix. Transfer from PCU to [facility] surg telemetry. Constitutional Vitals: Vital Signs Temp Pulse Resp BP Pulse Ox 37.0 C 72 22 137/66 99 12/16/21 08:01 12/16/21 08:01 12/16/21 08:01 12/16/21 08:01 12/16/21 08:01 Period Temp Pulse Resp BP Sys/Avila Pulse Ox Last 24 Hr 36.1 C-37.1 C 66-165 - 116-165/57-117 90-100 Intake and Output 12/15/21 12/16/21 12/16/21 21:59 05:59 13:59 Intake Total 955 0 240 Output Total 600 400 175 Balance 355 -400 65 Weight 66.82 kg Intake & Output: Intake & Output 12/15/21 12/16/21 12/16/21 21:59 05:59 13:59 Intake Total 955 0 240 Output Total 600 400 175 Balance 355 -400 65 Weight 66.82 kg Intake: Nourishment/Supplement quantity 240 (ml) Oral 715 0 240 Output: Void Amount 600 400 175 Other: Meal Dinner Breakfast Percent of Meal Consumed 100% 50% Feeding Ability Independent Independent Nourishment/Supplement name ensure Urine Appearance Clear Clear Clear Urine Color Bright Yellow Pale Bright Yellow Urine Odor Normal Normal General appearance: average body habitus, cooperative and no acute distress Head Head exam: Present atraumatic and normal inspection Eye Eye exam: Present normal appearance ENT ENT exam: Present mucous membranes moist, normal exam and normal external ear exam Neck Neck exam: Present normal inspection Respiratory Respiratory exam: Present normal respiratory exam and rhonchi Cardiovascular Cardiovascular exam: Present normal rate and rhythm GI/Abdominal GI/Abdominal exam: Present normal bowel sounds Extremities Exam Extremities exam: Present pedal edema Back Exam Back exam: Present normal inspection Neurological Exam Neurological exam: Present alert and oriented X3 Skin Skin exam: Present intact and warm OBJ DATA Labs CBC & Chem 7: 12/16/21 05:20 12/16/21 05:20 Labs: Abnormal Lab Results 12/16/21 12/16/21 12/15/21 05:20 05:20 05:23 Hct MPV 11.1 H Lymph # (Auto) Carbon Dioxide 21 L POC BUN BUN 43 H 34 H Creatinine 2.0 H 1.3 H POC Creatinine Glucose 128 H 190 H POC Glucose Hemoglobin A1c Phosphorus 4.9 H NT-Pro-B Natriuret Pep 12/15/21 12/14/21 12/14/21 05:23 12:50 12:49 Hct 32.2 L MPV 10.8 H 10.6 H Lymph # (Auto) 1.46 L Carbon Dioxide POC BUN BUN Creatinine POC Creatinine Glucose POC Glucose Hemoglobin A1c 7.8 H Phosphorus NT-Pro-B Natriuret Pep 12/14/21 12:49 Hct MPV Lymph # (Auto) Carbon Dioxide POC BUN 37 H BUN Creatinine POC Creatinine 1.3 H Glucose POC Glucose 238 H Hemoglobin A1c Phosphorus NT-Pro-B Natriuret Pep 52819.0 H Meds: Medications Acetaminophen (Acetaminophen 325 Mg Tablet) 650 mg PO Q4-6HP PRN; Protocol PRN Reason: Per Pain Protocol/Fever > 101 Last Admin: 12/15/21 20:27 Dose: 650 mg Documented by: Albuterol/Ipratropium (Ipratropium/Albuterol 3 Ml Ampul.Neb) 3 ml NEB Q4HRT PRN PRN Reason: Wheezing Ascorbic Acid (Ascorbic Acid 500 Mg Tablet) 250 mg PO DAILY [facility] Last Admin: 12/16/21 08:44 Dose: 250 mg Documented by: Aspirin (Aspirin 81 Mg Tab.Chew) 81 mg PO DAILY [facility] Last Admin: 12/15/21 08:00 Dose: 81 mg Documented by: Dextrose (Dextrose 50% 50 Ml Vial) 0 ml IV UD PRN PRN Reason: Hypoglycemia Diagnostic Test (Pha) (Accu-Chek 1 Each Strip) 1 each FS ACHS [facility] Last Admin: 12/16/21 07:29 Dose: 1 each Documented by: Docusate Sodium (Docusate Sodium 100 Mg Capsule) 100 mg PO BID [facility] Last Admin: 12/16/21 08:44 Dose: 100 mg Documented by: Fish Oil (Fish Oil 1,000 Mg Capsule) 1,000 mg PO DAILY [facility] Last Admin: 12/15/21 08:21 Dose: Not Given Documented by: Furosemide (Furosemide 40 Mg Tablet) 40 mg PO BIDD [facility] Last Admin: 12/16/21 08:42 Dose: 40 mg Documented by: Glucose (Dextrose 31 Gm Oral.Susp) 15 gm PO PRN PRN PRN Reason: Hypoglycemia Heparin Sodium (Porcine) (Heparin 5,000 Unit/Ml Vial) 5,000 unit SQ Q12 [facility] Last Admin: 12/15/21 20:27 Dose: 5,000 unit Documented by: Hydralazine HCl (Hydralazine 20 Mg/Ml Vial) 10 mg IV Q4-6HP PRN PRN Reason: Hypertension Ibuprofen (Ibuprofen 600 Mg Tablet) 600 mg PO QIDP PRN; Protocol PRN Reason: PAIN/FEVER > 101 Last Admin: 12/15/21 10:47 Dose: 600 mg Documented by: Insulin Human Lispro (Insulin Lispro 1 Unit/0.01 Ml Unit) 0 unit SQ ACHS [facility]; Protocol Last Admin: 12/15/21 20:27 Dose: 4 units Documented by: Iron Carb/Multivit/Lokie Driver/Folic Acid (Multivit,Ther Iron,Ca,Fa & Min 1 Tablet) 1 tab PO DAILY [facility] Last Admin: 12/15/21 08:00 Dose: 1 tab Documented by: Losartan Potassium (Losartan 25 Mg Tablet) 25 mg PO QDAY [facility] Last Admin: 12/16/21 08:44 Dose: 25 mg Documented by: Ondansetron HCl (Ondansetron 4 Mg/2 Ml Vial) 4 mg IV Q4-6HP PRN; Protocol PRN Reason: Nausea And Vomiting Last Admin: 12/15/21 05:25 Dose: 4 mg Documented by: Calcium-Magnesium- Zinc 333-133-5 Mg Tablet 1 dose PO DAILY [facility] Potassium Chloride (Potassium Chloride 20 Meq Tablet) 20 meq PO [facility] Last Admin: 12/16/21 08:44 Dose: 20 meq Documented by: Senna (Sennosides 8.8 Mg/5 Ml Ml) 8.8 mg PT DAILY PRN PRN Reason: Constipation Sodium Chloride (0.9 % Sodium Chloride 10 Ml Syringe) 10 ml IV Q8 [facility] Last Admin: 12/16/21 05:55 Dose: 10 ml Documented by: Vitamin D (Vitamin D3 25 Mcg Tablet) 100 mcg PO DAILY [facility] Last Admin: 12/16/21 08:44 Dose: 100 mcg Documented by: Zinc Sulfate (Zinc Sulfate 50 Mg Capsule) 50 mg PO DAILY [facility] Last Admin: 12/16/21 08:44 Dose: 50 mg Documented by: A/P Assessment and plan (1) Type 2 diabetes mellitus: Status: Chronic Qualifiers: Diabetes mellitus prison insulin use: with prison use Diabetes mellitus complication status: with hypoglycemia Diabetes mellitus complication detail: without coma Qualified Code(s): E11.649 - Type 2 diabetes mellitus with hypoglycemia without coma; Z79.4 - correction (current) use of insulin (2) CHF exacerbation: Status: Acute (3) Hypertensive emergency: Status: Acute (4) Stage 1 acute kidney injury: Status: Acute (5) CAD (coronary artery disease): Status: Acute Narrative A/P Narrative: Assessment and Plans: 1. CHF exacerbation: Inpatient med surg telemetry Strict intake and output Daily weigh 2L/day fluid restriction Supplemental oxygen therapy as needed to keep spo2>=92%, currently on room air 2D echocardiogram showing reduced left ventricular systolic function with LVEF 30-35% No beta riley in acute exacerbation phase Losartan Lasix 40mg PO BID Aldactone Physical therapy Occupational therapy 2. Hypertensive emergency: Nitroglycerin drip has been off Losartan Lasix 40mg PO BID 3. h/o CAD: Aspirin [place] 3 oil 4. T2DM: HgA1c 7.8 Hold oral hypoglycemics Correctional scale insulin AC HS Accu Chek AC HS Hypoglycemia protocol Diabetic diet 5. Stage 1 acute kidney injury: Avoid nephrotoxic agents Saline lock CMP in the morning to trend kidney functions GI ppx: not currently indicated DVT ppx: Heparin Code status: Full Prognosis: stable Disposition: inpatient med surg telemetry Time Spent With Patient Time: Total time spent is greater than 50% in coordination of care (as documented) at patient's floor/unit and/or counseling patient: Total time spent with greater than 50% in coordination of care (as documented) at patient's floor/unit and/or counseling patient:: Greater than 35 minutes QUALITY VTE Deep Vein Thrombosis/Pulmonary Embolism Present on Admission: No
[2021-12-16] MEDS: HEPARIN 5,000 UNIT/ML VIAL SQ SCH ×2 (10:37→20:47)
[2021-12-16] MEDS: INSULIN LISPRO 1 UNIT/0.01 ML UNIT SQ SCH ×4 (11:13→20:56)
[2021-12-16] MEDS: FISH OIL 1,000 MG CAPSULE PO SCH (11:14)
[2021-12-16] MEDS: CALCIUM MAGNESIUM ZINC PO SCH (11:14)
[2021-12-16] MEDS: MULTIVIT,THER IRON,CA,FA & MIN 1 TABLET PO SCH (11:16)
[2021-12-16] MEDS: FUROSEMIDE 40 MG/4 ML VIAL IV SCH (11:21)
--- NOTE | 2021-12-16 13:53 | Internal Med Progress Note ---
SUBJECTIVE Subjective Patient information: Note initiated : 12/16/21 at 1:49 pm Service Date, if different from initiated Date: [] Patient: Megan aJin a 70 y/o F admitted on 12/14/21 for short of breath. Chief Complaint: [] Interval history: Ms. Jain is a 70 year old F past medical history of CAD status post CABG x4, breast cancer status post right lumpectomy decades ago type 2 diabetes mellitus, presenting with 4-day history of shortness of breath and dyspnea on exertions. Patient does not have a history of congestive heart failure. Over the past 4 days, she is experiencing acute onset, gradually worsening shortness of breath with dyspnea on exertions with minimal physical activity such as walking 10 to 20 feet. In addition, she is also committing of orthopnea to the point that she have to sleep on the chair. She is experiencing unintentional weight loss, unquantifiable, due to decreased appetite. She denies any leg swellings. She is committing of productive cough with clear sputum as well as wheezing over the same period of time. She denies any chest pain or palpitations. She denies any fever or chills. Her symptoms got particularly worse since yesterday so she decided to come to the ED for evaluation this morning. Vital signs at ED presentation significant for elevated blood pressure 196/104 as well as tachypnea with rate of breathing in the upper 20s, with rest of the vital signs within normal limits. Covid screening test negative. Labs significant for normal serum troponin less than 0.01, as well as elevated serum BNP 11,564. Serum creatinine mildly elevated to 1.3. Checks x-ray showing mild CHF with moderate left pleural effusions resulting in compressive atelectasis of the lingula and left lower lobe which has worsened from previous x-ray study. Nitroglycerin drip was started in the ED for better blood pressure control and admission request was made for management of her blood pressure as well as for CHF exacerbations. 12/15: Currently on 1L/min oxygen. Good urine output. Still on Nitroglycerin drip. Pending 2D echocardiogram results. Improving SOB. c/o productive cough with clear sputum. c/o left lateral chest wall pain. Denies palpitation. Denies wheezing. Denies headache. Was able to sleep last night. Continue IV Lasix and Losartan. Try to wean off Nitroglycerin drip as tolerated. 12/16: Currently on room air. Been off Nitroglycerin drip. 2D echocardiogram showing reduced left ventricular systolic function with LVEF 30-35%. Improving degree of SOB. Denies cough or sputum production or wheezing. Denies chest pain. Denies leg swelling. Denies anxiety. Continue NENA-i/ARB, Aldactone, and oral Lasix. Transfer from PCU to [facility] telemetry. 12/17 On room air, not short of breath at rest but feels short of breath with exertion. Renal function improving. Started Coreg 3.125 mg BID. Physical exam Head: Atraumatic, normal inspection. Eyes: normal appearance, no scleral icterus. Neck: full ROM Respiratory: fine bibasilar crackles, no respiratory distress. Cardiovascular: normal rate and rhythm, S1, S2. GI/Abdominal: soft, nontender, no guarding. Extremities: full range of motion, nontender. Neurological: CN II-XII intact, intact motor, intact sensation. Psychiatric: normal mood. Skin: warm, normal color Constitutional Vitals: Vital Signs Temp Pulse Resp BP Pulse Ox 98.7 F 89 22 169/79 99 12/16/21 12:02 12/16/21 13:01 12/16/21 08:01 12/16/21 13:01 12/16/21 13:01 Period Temp Pulse Resp BP Sys/Avila Pulse Ox Last 24 Hr 97.0 F-98.8 F 66-91 09-11 116-171/57-95 90-100 Intake and Output 12/15/21 12/16/21 12/16/21 21:59 05:59 13:59 Intake Total 955 0 720 Output Total 600 400 670 Balance 355 -400 50 Weight 66.82 kg Intake & Output: Intake & Output 12/15/21 12/16/21 12/16/21 21:59 05:59 13:59 Intake Total 955 0 720 Output Total 600 400 670 Balance 355 -400 50 Weight 66.82 kg Intake: Nourishment/Supplement quantity 240 (ml) Oral 715 0 720 Output: Void Amount 600 400 670 Other: Meal Dinner Lunch Percent of Meal Consumed 100% 100% Feeding Ability Independent Independent Nourishment/Supplement name ensure Urine Appearance Clear Clear Clear Urine Color Bright Yellow Pale Bright Yellow Urine Odor Normal Normal OBJ DATA Labs CBC & Chem 7: 12/17/21 06:11 12/17/21 06:11 Labs: Abnormal Lab Results 12/16/21 12/16/21 12/15/21 05:20 05:20 05:23 Hct MPV 11.1 H Lymph # (Auto) Carbon Dioxide 21 L POC BUN BUN 43 H 34 H Creatinine 2.0 H 1.3 H POC Creatinine Glucose 128 H 190 H POC Glucose Hemoglobin A1c Phosphorus 4.9 H NT-Pro-B Natriuret Pep 12/15/21 12/14/21 12/14/21 05:23 12:50 12:49 Hct 32.2 L MPV 10.8 H 10.6 H Lymph # (Auto) 1.46 L Carbon Dioxide POC BUN BUN Creatinine POC Creatinine Glucose POC Glucose Hemoglobin A1c 7.8 H Phosphorus NT-Pro-B Natriuret Pep 12/14/21 12:49 Hct MPV Lymph # (Auto) Carbon Dioxide POC BUN 37 H BUN Creatinine POC Creatinine 1.3 H Glucose POC Glucose 238 H Hemoglobin A1c Phosphorus NT-Pro-B Natriuret Pep 16511.0 H Meds: Medications Acetaminophen (Acetaminophen 325 Mg Tablet) 650 mg PO Q4-6HP PRN; Protocol PRN Reason: Per Pain Protocol/Fever > 101 Last Admin: 12/15/21 20:27 Dose: 650 mg Documented by: Albuterol/Ipratropium (Ipratropium/Albuterol 3 Ml Ampul.Neb) 3 ml NEB Q4HRT PRN PRN Reason: Wheezing Ascorbic Acid (Ascorbic Acid 500 Mg Tablet) 250 mg PO DAILY [facility] Last Admin: 12/16/21 08:44 Dose: 250 mg Documented by: Aspirin (Aspirin 81 Mg Tab.Chew) 81 mg PO DAILY [facility] Last Admin: 12/16/21 08:45 Dose: 81 mg Documented by: Dextrose (Dextrose 50% 50 Ml Vial) 0 ml IV UD PRN PRN Reason: Hypoglycemia Diagnostic Test (Pha) (Accu-Chek 1 Each Strip) 1 each FS ACHS [facility] Last Admin: 12/16/21 11:38 Dose: 1 each Documented by: Docusate Sodium (Docusate Sodium 100 Mg Capsule) 100 mg PO BID [facility] Last Admin: 12/16/21 08:44 Dose: 100 mg Documented by: Fish Oil (Fish Oil 1,000 Mg Capsule) 1,000 mg PO DAILY [facility] Last Admin: 12/16/21 11:14 Dose: Not Given Documented by: Furosemide (Furosemide 40 Mg Tablet) 40 mg PO BIDD [facility] Last Admin: 12/16/21 08:42 Dose: 40 mg Documented by: Glucose (Dextrose 31 Gm Oral.Susp) 15 gm PO PRN PRN PRN Reason: Hypoglycemia Heparin Sodium (Porcine) (Heparin 5,000 Unit/Ml Vial) 5,000 unit SQ Q12 [facility] Last Admin: 12/16/21 10:37 Dose: 5,000 unit Documented by: Hydralazine HCl (Hydralazine 20 Mg/Ml Vial) 10 mg IV Q4-6HP PRN PRN Reason: Hypertension Ibuprofen (Ibuprofen 600 Mg Tablet) 600 mg PO QIDP PRN; Protocol PRN Reason: PAIN/FEVER > 101 Last Admin: 12/15/21 10:47 Dose: 600 mg Documented by: Insulin Human Lispro (Insulin Lispro 1 Unit/0.01 Ml Unit) 0 unit SQ ACHS [facility]; Protocol Last Admin: 12/16/21 11:52 Dose: 2 units Documented by: Iron Carb/Multivit/[place]/Folic Acid (Multivit,Ther Iron,Ca,Fa & Min 1 Tablet) 1 tab PO DAILY [facility] Last Admin: 12/16/21 11:16 Dose: 1 tab Documented by: Losartan Potassium (Losartan 25 Mg Tablet) 25 mg PO QDAY [facility] Last Admin: 12/16/21 08:44 Dose: 25 mg Documented by: Ondansetron HCl (Ondansetron 4 Mg/2 Ml Vial) 4 mg IV Q4-6HP PRN; Protocol PRN Reason: Nausea And Vomiting Last Admin: 12/15/21 05:25 Dose: 4 mg Documented by: Calcium-Magnesium- Zinc 333-133-5 Mg Tablet 1 dose PO DAILY [facility] Last Admin: 12/16/21 11:14 Dose: Not Given Documented by: Potassium Chloride (Potassium Chloride 20 Meq Tablet) [facility] Last Admin: 12/16/21 08:44 Dose: 20 meq Documented by: Senna (Sennosides 8.8 Mg/5 Ml Ml) 8.8 mg PT DAILY PRN PRN Reason: Constipation Sodium Chloride (0.9 % Sodium Chloride 10 Ml Syringe) 10 ml IV Q8 [facility] Last Admin: 12/16/21 05:55 Dose: 10 ml Documented by: Spironolactone (Spironolactone 25 Mg Tablet) 25 mg PO DAILY [facility] Vitamin D (Vitamin D3 25 Mcg Tablet) 100 mcg PO DAILY [facility] Last Admin: 12/16/21 08:44 Dose: 100 mcg Documented by: Zinc Sulfate (Zinc Sulfate 50 Mg Capsule) 50 mg PO DAILY [facility] Last Admin: 12/16/21 08:44 Dose: 50 mg Documented by: A/P Narrative A/P Narrative: Assessment: 70 year old female with a medical history of CAD status post CABG x4, breast cancer status post right lumpectomy decades ago type 2 diabetes mellitus, presenting with 4-day history of shortness of breath and dyspnea on exertions. The patient was found to have acute heart failure with reduced left ventricular ejection fraction of 30 to 35%, mildly reduced right ventricular systolic function. #Acute systolic heart failure -No evidence of acute KS on admission. -History of CAD status post CABG. #Acute kidney injury versus acute on chronic kidney injury #Hypertension #Coronary disease status post CABG #Type 2 diabetes mellitus #Breast cancer status post lumpectomy Plan -Lasix 40 mg twice daily, follow volume status. -Monitor renal function, electrolytes, urine output. -Start Coreg 3.125 mg BID, increase dose at tolerated. -Losartan and spironolactonenew medications for HFrEF. -Consider adding beta-riley prior to discharge for HFrEF. -Continue home aspirin, unclear why the patient was not taking a statin prior to admission. -Correctional insulin SSI-medium. -Consider adding SGLT2 inhibitor for diagnosis of HFrEF and DM. -Diabetic diet. -PT following. -DVT PPx: Heparin SQ -CODE STATUS: Full -Disposition: Home when stable, outpatient cardiac stress test and cardiology referral for new diagnosis of HFrEF. Time Spent With Patient Time: Total time spent is greater than 50% in coordination of care (as documented) at patient's floor/unit and/or counseling patient: QUALITY VTE Deep Vein Thrombosis/Pulmonary Embolism Present on Admission: No
[2021-12-17] MEDS: 0.9 % SODIUM CHLORIDE 10 ML SYRINGE IV SCH ×3 (05:23→20:38)
[2021-12-17 07:01] LABS: Basophils # (Auto) 0.03 K/mcL (0.00-0.30); Basophils % (Auto) 0.5 % (0.0-2.0); Eosinophils # (Auto) 0.17 K/mcL (0.00-0.70); Hematocrit 35.4 % (34.1-44.9); Hemoglobin 11.8 g/dL (11.2-15.7); Lymphocytes # (Auto) 1.36 K/mcL (1.50-4.80); Lymphocytes % (Auto) 24.2 % (15.5-49.0); Mean Cell Volume 83.9 fL (80.0-100.0); Mean Corpuscular HGB Conc 33.3 g/dL (31.0-36.0); Mean Platelet Volume 10.8 fL (7.4-10.4); Monocytes # (Auto) 0.55 K/mcL (0.10-0.90); Monocytes % (Auto) 9.8 % (1.0-12.0); Neutrophils % (Auto) 62.5 % (38.0-78.0); Platelet Count 145 K/mcL (140-440); RBC 4.22 M/mcL (3.59-5.38); Red Cell Distribution Width 13.1 % (11.5-14.5); WBC 5.6 K/mcL (4.5-11.0)
[2021-12-17] MEDS: INSULIN LISPRO 1 UNIT/0.01 ML UNIT SQ SCH ×4 (07:25→20:37)
[2021-12-17 07:37] LABS: ALT/SGPT 15 U/L (<40); AST/SGOT 18 U/L (<32); Albumin 3.6 gm/dL (3.2-5.2); Albumin/Globulin Ratio 1.4 (1.0-2.3); Alkaline Phosphatase 62 U/L (39-117); Bilirubin,Total 0.3 mg/dL (0.1-1.0); Blood Urea Nitrogen 49 mg/dL (8-23); Calcium 9.7 mg/dL (8.6-10.4); Carbon Dioxide 20 mmol/L (22-30); Chloride 100 mmol/L (96-108); Globulin 2.6 gm/dL (2.2-3.7); Glomerular Filtration Rate 32; Glucose 125 mg/dL (70-105); Phosphorous 4.2 mg/dL (2.5-4.5)
[2021-12-17] MEDS: ASCORBIC ACID 500 MG TABLET PO SCH (08:42)
[2021-12-17] MEDS: VITAMIN D3 25 MCG TABLET PO SCH (08:42)
[2021-12-17] MEDS: LOSARTAN 25 MG TABLET PO SCH (08:42)
[2021-12-17] MEDS: FISH OIL 1,000 MG CAPSULE PO SCH (08:43)
[2021-12-17] MEDS: FUROSEMIDE 40 MG TABLET PO SCH ×2 (08:43→16:56)
[2021-12-17] MEDS: DOCUSATE SODIUM 100 MG CAPSULE PO SCH ×2 (08:43→20:39)
[2021-12-17] MEDS: ASPIRIN 81 MG TAB.CHEW PO SCH (08:43)
[2021-12-17] MEDS: POTASSIUM CHLORIDE 20 MEQ TABLET PO SCH (08:43)
[2021-12-17] MEDS: HEPARIN 5,000 UNIT/ML VIAL SQ SCH ×2 (08:43→20:38)
[2021-12-17] MEDS: MULTIVIT,THER IRON,CA,FA & MIN 1 TABLET PO SCH (08:43)
[2021-12-17] MEDS: ZINC SULFATE 50 MG CAPSULE PO SCH (08:43)
[2021-12-17] MEDS: CARVEDILOL 3.125 MG TABLET PO SCH ×2 (08:48→17:08)
[2021-12-17] MEDS ORDERED: SPIRONOLACTONE 25 MG TABLET PO SCH (09:00)
[2021-12-17] MEDS: CALCIUM MAGNESIUM ZINC PO SCH (11:05)
[2021-12-18] MEDS: 0.9 % SODIUM CHLORIDE 10 ML SYRINGE IV SCH (05:34)
[2021-12-18 06:40] LABS: Basophils # (Auto) 0.03 K/mcL (0.00-0.30); Basophils % (Auto) 0.5 % (0.0-2.0); Eosinophils # (Auto) 0.21 K/mcL (0.00-0.70); Eosinophils % (Auto) 3.7 % (0.0-7.0); Hematocrit 37.4 % (34.1-44.9); Hemoglobin 12.9 g/dL (11.2-15.7); Lymphocytes # (Auto) 1.41 K/mcL (1.50-4.80); Lymphocytes % (Auto) 24.5 % (15.5-49.0); Mean Cell Volume 82.2 fL (80.0-100.0); Mean Corpuscular HGB Conc 34.5 g/dL (31.0-36.0); Monocytes # (Auto) 0.53 K/mcL (0.10-0.90); Monocytes % (Auto) 9.2 % (1.0-12.0); Neutrophils % (Auto) 62.1 % (38.0-78.0); Platelet Count 154 K/mcL (140-440); RBC 4.55 M/mcL (3.59-5.38); Red Cell Distribution Width 13.1 % (11.5-14.5); WBC 5.8 K/mcL (4.5-11.0)
[2021-12-18 07:14] LABS: Albumin 3.8 gm/dL (3.2-5.2); Calcium 10.1 mg/dL (8.6-10.4); Phosphorous 3.9 mg/dL (2.5-4.5)
[2021-12-18] MEDS: INSULIN LISPRO 1 UNIT/0.01 ML UNIT SQ SCH ×2 (07:42→11:50)
[2021-12-18] MEDS: POTASSIUM CHLORIDE 20 MEQ TABLET PO SCH (07:54)
[2021-12-18] MEDS: LOSARTAN 25 MG TABLET PO SCH (07:54)
[2021-12-18] MEDS: FUROSEMIDE 40 MG TABLET PO SCH (07:55)
[2021-12-18] MEDS ORDERED: CARVEDILOL 3.125 MG TABLET PO SCH (08:00)
[2021-12-18] MEDS: HEPARIN 5,000 UNIT/ML VIAL SQ SCH (08:52)
[2021-12-18] MEDS: ZINC SULFATE 50 MG CAPSULE PO SCH (08:52)
[2021-12-18] MEDS: MULTIVIT,THER IRON,CA,FA & MIN 1 TABLET PO SCH (08:52)
[2021-12-18] MEDS: ASPIRIN 81 MG TAB.CHEW PO SCH (08:52)
[2021-12-18] MEDS: VITAMIN D3 25 MCG TABLET PO SCH (08:52)
[2021-12-18] MEDS: DOCUSATE SODIUM 100 MG CAPSULE PO SCH (08:53)
[2021-12-18] MEDS: FISH OIL 1,000 MG CAPSULE PO SCH (08:53)
[2021-12-18] MEDS: ASCORBIC ACID 500 MG TABLET PO SCH (08:53)
[2021-12-18] MEDS: CALCIUM MAGNESIUM ZINC PO SCH (08:53)
--- NOTE | 2021-12-18 11:14 | Discharge Summary ---
Discharge Provider Provider Patient information: Note initiated : 12/18/21 at 11:05 am Service Date, if different from initiated Date: [] Patient: Megan Jain 70 y/o F admitted on 12/14/21 for short of breath. Chief Complaint: [] Date of admission: 12/14/21 16:14 Discharge date: 12/18/21 Primary care physician: Joey Viramontes DO Consults: 12/14/21 Consult to Physician [CONS] Stat Comment: Consulting Provider: Yazan Becerra Reason For Exam: Physician to Consult Discharge Meds Discharge Medications Home Medications aspirin 81 mg tablet,delayed release (Adult Low Dose Aspirin) 81 mg PO QDAY 10/12/19 [History Confirmed 12/14/21 Last Taken 12/13/21] blood sugar diagnostic (True Metrix Pro Test Strip) #200 each 10/12/19 [Rx Confirmed 12/15/21 Last Taken Unknown] cholecalciferol (vitamin D3) 100 mcg (4,000 unit) capsule 4,000 unit PO QDAY 10/12/19 [History Confirmed 12/14/21 Last Taken 12/13/21] lancets #200 each 10/12/19 [Rx Confirmed 12/15/21 Last Taken Unknown] multivitamin,[id number] (Complete Multivitamin) 1 tab PO QDAY 10/12/19 [History Confirmed 12/14/21 Last Taken 12/13/21] zinc 50 mg tablet (Chelated Zinc) 50 mg PO QDAY 10/12/19 [History Confirmed 12/14/21 Last Taken 12/13/21] ascorbic acid (vitamin C) 250 mg tablet 250 mg PO DAILY 12/14/21 [History Confirmed 12/14/21 Last Taken Unknown] kevjtpz-rdgemxsyn-koie 333 mg-133 mg-5 mg tablet 1 tab PO DAILY 12/14/21 [History Confirmed 12/14/21 Last Taken Unknown] carvedilol 6.25 mg tablet (Coreg) 6.25 mg PO BID #90 tab 12/18/21 [Rx Last Taken Unknown] furosemide 40 mg tablet 40 mg PO BIDD #90 tab 12/18/21 [Rx Last Taken Unknown] losartan 25 mg tablet 25 mg PO QDAY #60 tab 12/18/21 [Rx Last Taken Unknown] rosuvastatin 20 mg tablet 20 mg PO QDAY #60 tab 12/18/21 [Rx Last Taken Unknown] COURSE Hospital Course Hospital course: Ms. Jain is a 70 year old F past medical history of CAD status post CABG x4, breast cancer status post right lumpectomy decades ago type 2 diabetes mellitus, presenting with 4-day history of shortness of breath and dyspnea on exertions. Patient does not have a history of congestive heart failure. Over the past 4 days, she is experiencing acute onset, gradually worsening shortness of breath with dyspnea on exertions with minimal physical activity such as walking 10 to 20 feet. In addition, she is also committing of orthopnea to the point that she have to sleep on the chair. She is experiencing unintentional weight loss, unquantifiable, due to decreased appetite. She denies any leg swellings. She is committing of productive cough with clear sputum as well as wheezing over the same period of time. She denies any chest pain or palpitations. She denies any fever or chills. Her symptoms got particularly worse since yesterday so she decided to come to the ED for evaluation this morning. Vital signs at ED presentation significant for elevated blood pressure 196/104 as well as tachypnea with rate of breathing in the upper 20s, with rest of the vital signs within normal limits. Covid screening test negative. Labs significant for normal serum troponin less than 0.01, as well as elevated serum BNP 11,564. Serum creatinine mildly elevated to 1.3. Checks x-ray showing mild CHF with moderate left pleural effusions resulting in compressive atelectasis of the lingula and left lower lobe which has worsened from previous x-ray study. Nitroglycerin drip was started in the ED for better blood pressure control and admission request was made for management of her blood pressure as well as for CHF exacerbations. 12/15: Currently on 1L/min oxygen. Good urine output. Still on Nitroglycerin drip. Pending 2D echocardiogram results. Improving SOB. c/o productive cough with clear sputum. c/o left lateral chest wall pain. Denies palpitation. Denies wheezing. Denies headache. Was able to sleep last night. Continue IV Lasix and Losartan. Try to wean off Nitroglycerin drip as tolerated. 12/16: Currently on room air. Been off Nitroglycerin drip. 2D echocardiogram showing reduced left ventricular systolic function with LVEF 30-35%. Improving degree of SOB. Denies cough or sputum production or wheezing. Denies chest pain. Denies leg swelling. Denies anxiety. Continue NENA-i/ARB, Aldactone, and oral Lasix. Transfer from PCU to med surg telemetry. 12/17 On room air, not short of breath at rest but feels short of breath with exertion. Renal function improving. Started Coreg 3.125 mg BID. Entresto is not formulary and may be expensive for the patient. 12/18 Feels better today, ready to go home. Discharged to home with cardiology follow up at [place] on which was the earliest available. New medications at discharge are Carvedilol, Lasix, Rosuvastatin. Discussed oral medication for diabetes mellitus, the patient refused saying she wanted to continue with life- style interventions. We discussed the interval increase in hemoglobin A1C from 7.5 to 7.8. Post hospital follow up; -Follow up with cardiology for HFrEF, continue guideline-directed medical therapy for HFrEF which may include Entresto and a SGLT2 inhibitor. Anticipate cardiac stress testing per cardiology preference given history of CAD s/p CABG and new HFrEF. -Adjust lasix for volume status, monitor renal function and electrolytes periodically. -Follow up with PCP. -Monitor hemoglobin A1C. Physical exam Head: Atraumatic, normal inspection. Eyes: normal appearance, no scleral icterus. Neck: full ROM Respiratory: fine bibasilar crackles, no respiratory distress. Cardiovascular: normal rate and rhythm, S1, S2. GI/Abdominal: soft, nontender, no guarding. Extremities: full range of motion, nontender. Neurological: CN II-XII intact, intact motor, intact sensation. Psychiatric: normal mood. Skin: warm, normal color Discharge diagnosis: Acute systolic heart failure Secondary discharge diagnosis: Diabetes mellitus Time Spent with Patient Time attestation: Total time spent providing and/or coordinating discharge services: EXAM Constitutional Vitals: Temp Pulse Resp BP Pulse Ox 97.9 F 66 15 135/70 96 12/18/21 07:00 12/18/21 07:00 12/18/21 07:00 12/18/21 07:00 12/18/21 07:00 Discharge Data Data Completed and Pending Labs on day of discharge: Labs from last 24 hours 12/18/21 12/18/21 12/18/21 05:36 05:36 05:36 WBC 5.8 RBC 4.55 Hgb 12.9 Hct 37.4 MCV 82.2 MCH 28.4 MCHC 34.5 RDW 13.1 Plt Count 154 MPV 11.0 H Neut % (Auto) 62.1 Lymph % (Auto) 24.5 [place] % (Auto) 9.2 Eos % (Auto) 3.7 Baso % (Auto) 0.5 Lymph # (Auto) 1.41 L [place] # (Auto) 0.53 Eos # (Auto) 0.21 Baso # (Auto) 0.03 Absolute Neutrophils 3.57 Sodium 136 Potassium 4.6 Chloride 101 Carbon Dioxide 22 Anion Gap 13.0 BUN 54 H Creatinine 1.6 H GFR Calculation 32 Glucose 117 H Calcium 10.1 Phosphorus 3.9 4.0 Magnesium 2.4 Albumin 3.8 Discharge Plan Patient/Caregiver Discharge Instructions Activity: increase activity as tolerated Diet: Low Sodium (2gm), Cardiac and Consistent Carbohydrate Prescriptions: New furosemide 40 mg Tablet 40 mg PO BIDD Qty: 90 4RF losartan 25 mg Tablet 25 mg PO QDAY Qty: 60 4RF carvedilol [Coreg] 6.25 mg tablet 6.25 mg PO BID Qty: 90 4RF Rx Instructions: must administer with a meal/food rosuvastatin 20 mg tablet 20 mg PO QDAY Qty: 60 4RF Continued aspirin [Adult Low Dose Aspirin] 81 mg tablet,delayed release (DR/EC) 81 mg PO QDAY 0RF cholecalciferol (vitamin D3) 4,000 unit capsule 4,000 unit PO QDAY 0RF zinc [Chelated Zinc] 50 mg tablet 50 mg PO QDAY 0RF Complete Multivitamin Tablet 1 tab PO QDAY 0RF (DME) True Metrix Pro Test Strip Strip See Rx Instructions .ROUTE .MEDSUPPLY Qty: 200 5RF Rx Instructions: Use to check blood glucose 4 times daily (DME) lancets Misc See Rx Instructions .ROUTE .MEDSUPPLY Qty: 200 3RF Rx Instructions: Use to test blood sugars 4 times daily ascorbic acid (vitamin C) 250 mg Tablet 250 mg PO DAILY 0RF ggguifp-ypnbkwrbb-sdwy 333-133-5 mg Tablet 1 tab PO DAILY 0RF Discontinued potassium chloride 20 mEq tablet extended release 20 meq PO QDAY 0RF Follow Up Plan Follow up with: Joey Viramontes DO [Primary Care Provider] - Patient Disposition: Home, Self-Care Prognosis: Fair Overall status at discharge: patient is progressing back to baseline Discharge Orders: Discharge Order (Routine); Ordered 12/18/21 Ordered By: Rodríguez ALMAGUER VTE Deep Vein Thrombosis/Pulmonary Embolism Present on Admission: No
== END 2021-12-18 13:40 | disposition home or self-care (01) | DRG 302 ==
LOC: ED 12:28 → ICU 16:14 → MEDSUR 12-16 15:01
PROVIDERS: ADMIT Internal Medicine; ATTEND Internal Medicine